=== PATIENT | female | born 1995 | race African-American/Black ===

== ENCOUNTER 2017-10-11 00:49 | Emergency (ER) | payer SELFPAY, OTHER ==
[2017-10-11] MEDS ORDERED: CEPHALEXIN 500 MG CAP PO (05:15)
== END 2017-10-11 05:42 | disposition home or self-care (01) ==
LOC: M ED 00:49
DX: L03.114 Cellulitis of left upper limb (principal); I10 Essential (primary) hypertension
CPT/HCPCS: 87186